=== PATIENT | male | born 1975 | race Hispanic/Latino ===

== ENCOUNTER 2024-02-23 09:27 | Day surgery (SDC) | payer OTHER ==
[~2024-02-23] VITALS: Ht 188 cm; Wt 96.6 kg
[~2024-02-23 09:27] MED LIST: EXCEDRIN TENSION HEA PO
[2024-02-23] MEDS ORDERED: LACTATED RINGER'S 1,000 ML IV ONE (09:40)
[2024-02-23] MEDS ORDERED: FAMOTIDINE 10MG/ML 2ML SDV IV ONE (09:40)
[2024-02-23 11:57] VITALS: BP 128/84
[2024-02-23] MEDS ORDERED: GLYCOPYRROLATE 0.2 MG/ML IV ONE (15:47)
[2024-02-23] MEDS ORDERED: PROPOFOL 200 MG/20 ML VIAL IV ONE (15:47)
== END 2024-02-23 12:05 | disposition home or self-care (01) | DRG 392 ==
LOC: ENDO 09:27
PROVIDERS: ATTEND Internal Medicine Gastroenterology
PROC: 0DB98ZX Excision of Duodenum, Via Natural or Artificial Opening Endoscopic, Diagnostic (ICD-10-PCS; principal; 2024-02-23)
PROC: 0DB78ZX Excision of Stomach, Pylorus, Via Natural or Artificial Opening Endoscopic, Diagnostic (ICD-10-PCS; 2024-02-23)
DX: K29.60 Other gastritis without bleeding (principal); K29.80 Duodenitis without bleeding; R74.01 Elevation of levels of liver transaminase levels